=== PATIENT | female | born 2000 | race Caucasian/White ===

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

== ENCOUNTER 2020-04-08 15:18 | Emergency (ER) | payer OTHER, SELFPAY ==
[2020-04-08 15:29] VITALS: BP 123/57; PULSE 70; RESP 18; TEMP 37.2; O2SAT 98; BMI 32.8
[2020-04-08 16:26] LABS: Add Manual Diff / Slide Review NO; Basophils Absolute Auto 0 /uL (0-100); Basophils Percent Auto 0.4 % (0-2); Eosinophils Absolute Auto 200 /uL (0-450); Hematocrit 38.1 % (36-46); Hemoglobin 12.7 g/dL (12.0-16.0); Lymphocytes Absolute Auto 2600 /uL (1100-4500); Mean Corpuscular HGB Conc 33.4 % (30-36); Mean Corpuscular Hemoglobin 31.3 PG (26-34); Mean Corpuscular Volume 93.7 fL (80-100); Monocytes Absolute Auto 600 /uL (0-900); Monocytes Percent Auto 6.6 % (3-14); Neutrophils Absolute Auto 5300 /uL (1500-7000); Platelet Count 247 X10^3/uL (150-400); Red Blood Cell Count 4.07 X10^6/uL (4.0-5.2); Red Cell Distribution Width 13.7 % (11.6-14.8); White Blood Cell Count 8.6 X10^3/uL (4.5-11.0)
[2020-04-08 16:32] LABS: INR 1.1 (0.9-1.3); Prothrombin Time 12.4 SECONDS (10.1-12.7)
[2020-04-08 16:35] LABS: PTT Partial Thromboplastin Tim 32 SECONDS (26.4-36.2)
[2020-04-08 16:39] LABS: Alanine Aminotransferase 14 IU/L (<35); Albumin 4.5 g/dL (3.5-5.0); Albumin Globulin Ratio 1.6 (1.0-2.8); Alkaline Phosphatase 65 U/L (38-126); Amylase 105 U/L (30-110); Aspartate Aminotransferase 27 IU/L (14-36); BUN Creatinine Ratio 15.5 (6-22); Bilirubin Total 0.4 mg/dL (0.2-1.3); Blood Urea Nitrogen 9 mg/dL (7-17); Calcium 9.2 mg/dL (8.4-10.2); Carbon Dioxide 25 mmol/L (22-32); Chloride 105 mmol/L (98-107); Estimated Glomerular Filt Rate > 60.0 mL/min (>60); Globulin 2.9 g/dL (1.7-4.1); Glucose 81 mg/dL (70-100); HEMOLYSIS 19 (0-50); Lipase 42 U/L (23-300); Potassium 3.8 mmol/L (3.4-5.1); Sodium 138 mmol/L (137-145); Total Protein 7.4 g/dL (6.3-8.2)
--- NOTE | 2020-04-08 16:44 | ED_ITS ---
HPI - Abdominal Pain <NISHANT Richards - Last Filed: 04/08/20 19:22> General Chief Complaint: Abdominal Pain Stated Complaint: thinks appendicitis sent by [facility] Time Seen by Provider: 04/08/20 15:44 Source: patient and family Mode of arrival: Ambulatory Limitations: no limitations History of Present Illness HPI narrative: The patient is a 19-year-old female current smoker with history o f ovarian cyst who presents with a chief complaint of sudden severe left lower quadrant pain. This started yesterday, she has had no fevers no nausea or vomiting. She states that the pain goes all the way through to her back. She denies any dysuria urgency or frequency. She denies any possibility of as she has Mirena IUD. She states that the pain radiates to her back, she has had some diarrhea as well. Cough, chest pain or shortness of breath. She states that this feels much different on her last ovarian cyst. It did hurt for her to drive here in the car. Related Data Home Medications Medication Instructions Recorded Confirmed ibuprofen 1 dose PO PRN PRN 11/11/18 04/08/20 cetirizine 10 mg capsule 10 mg PO DAILY 04/08/20 04/08/20 Previous Rx's Medication Instructions Recorded Mirena 52 mg INTRAU X1 #1 ea 09/08/16 hydroxyzine HCl 25 mg tablet 25 mg PO QID PRN #60 tab 11/04/18 fluoxetine 40 mg capsule 40 mg PO DAILY #90 cap 05/22/19 hydrocodone-acetaminophen [[place]] 1 tab PO Q4-6H PRN #7 tab 04/08/20 ondansetron 4 mg PO Q6H PRN #14 tab 04/08/20 prednisone 40 mg PO DAILY 5 Days #10 tab 04/08/20 Allergies Allergy/AdvReac Type Severity Reaction Status Date / Time adhesive [ADHESIVE] Allergy Unknown Verified 04/08/20 14:49 morphine [MORPHINE] AdvReac Unknown Verified 04/08/20 14:49 Review of Systems <NISHANT Richards - Last Filed: 04/08/20 19:22> Review of Systems Narrative: GENERAL: Denies chills, fatigue, malaise, fever, sweats. HEENT: Denies sinus pain, ear pain, sore throat, difficulty swallowing, dizziness. RESPIRATORY: Denies dyspnea, cough, wheezing, hemoptysis, sputum. CARDIOVASCULAR: Denies chest pain, palpitations, orthopnea, edema, GASTROINTESTINAL: See HPI : Denies dysuria, frequency, incontinence, hematuria, urinary retention. MUSCULOSKELETAL: denies weakness, joint pain, or bony pain SKIN: Denies rash, skin lesions, or other NEUROLOGIC: Denies weakness, headache, numbness, change in speech, confusion, seizures, incoordination. PSYCHIATRIC: No concerning psychosocial issues. 12 point review of systems is negative except for those stated above Patient History <NISHANT Richards - Last Filed: 04/08/20 19:22> Medical History (Updated 04/08/20 @ 19:18 by NISHANT Richards) Attention deficit hyperactivity disorder (ADHD) (Chronic 05/12/14) Depression (Chronic) Social History Smoking Status: Current every day smoker alcohol intake: never substance use type: marijuana Smoking Status: Current every day smoker Exam <NISHANT Richards - Last Filed: 04/08/20 19:22> Narrative Exam Narrative: GENERAL: This is a well-nourished, well-developed patient, appears uncomfortable with mother at bedside HEAD: Atraumatic. Normocephalic. No temporal or scalp tenderness. EYES: Pupils equal round and reactive. Extraocular motions intact. No scleral icterus. No injection or drainage. ENT: Nose without bleeding, purulent drainage or septal hematoma. Throat without erythema, tonsillar hypertrophy or exudate. Uvula midline. Airway patent. NECK: Trachea midline. No JVD or lymphadenopathy. Supple, nontender, no meninge al signs. CARDIOVASCULAR: Regular rate and rhythm RESPIRATORY: Clear to auscultation. Breath sounds equal bilaterally. No wheezes, rales, or rhonchi. No cough. No increased respiratory effort. No accessory muscle use. GASTROINTESTINAL: Abdomen soft, tenderness in the left lower quadrant to palpat ion. Nondistended. No hepato-splenomegaly, or palpable masses. No guarding. Active bowel sounds all 4 quadrants EXTREMITIES: No clubbing, cyanosis, or edema. No joint tenderness, effusion, or edema noted. BACK: Nontender without deformity or crepitance. No flank tenderness. NEURO: AOx3. SKIN: No rash or erythema on visible skin Initial Vital Signs Initial Vital Signs: Vital Signs Temperature 99.0 F 04/08/20 15:29 Pulse Rate 70 04/08/20 15:29 Respiratory Rate 18 04/08/20 15:29 Blood Pressure 123/57 L 04/08/20 15:29 Pulse Oximetry 98 04/08/20 15:29 <Tadeo Aguirre DO - Last Filed: 04/09/20 11:06> Initial Vital Signs Initial Vital Signs: Vital Signs Temperature 99.0 F 04/08/20 15:29 Pulse Rate 70 04/08/20 15:29 Respiratory Rate 18 04/08/20 15:29 Blood Pressure 123/57 L 04/08/20 15:29 Pulse Oximetry 98 04/08/20 15:29 Scores <NISHANT Richards - Last Filed: 04/08/20 19:22> GCS Austen coma scale eye opening: Spontaneous Austen coma scale verbal response: Orientated Austen coma scale motor response: Obey commands Austen coma scale total score: 15 Course <NISHANT Richards - Last Filed: 04/08/20 19:22> Orders Ordered: Discontinued Medications Hydrocodone Bitart/Acetaminophen ([place] 5/325) 1 tab PO NOW ONE Stop: 04/08/20 18:17 Last Admin: 04/08/20 18:36 Dose: 1 tab Documented by: KATIE Sodium Chloride (Normal Saline 0.9%) 1,000 mls @ 1,000 mls/hr IV BOLUS ONE Stop: 04/08/20 16:57 Last Infusion: 04/08/20 19:54 Dose: 0 mls/hr Documented by: Admin: 04/08/20 16:57 Dose: 1,000 mls/hr Documented by: KATIE Methylprednisolone (Solu-Medrol 125 Mg Vial) 125 mg IV NOW ONE Stop: 04/08/20 18:17 Last Admin: 04/08/20 18:36 Dose: 125 mg Documented by: KATIE Morphine Sulfate (Morphine) 2 mg IV NOW ONE Stop: 04/08/20 15:59 Last Admin: 04/08/20 16:57 Dose: 2 mg Documented by: KATIE Vital Signs Vital signs: Vital Signs - 8 hr 04/08/20 15:29 Temperature 99.0 F Pulse Rate 70 Respiratory Rate 18 Blood Pressure 123/57 L Pulse Oximetry 98 <Tadeo Aguirre DO - Last Filed: 04/09/20 11:06> Orders Ordered: Discontinued Medications Hydrocodone Bitart/Acetaminophen ([place] 5/325) 1 tab PO NOW ONE Stop: 04/08/20 18:17 Last Admin: 04/08/20 18:36 Dose: 1 tab Documented by: KATIE Sodium Chloride (Normal Saline 0.9%) 1,000 mls @ 1,000 mls/hr IV BOLUS ONE Stop: 04/08/20 16:57 Last Infusion: 04/08/20 19:54 Dose: 0 mls/hr Documented by: Admin: 04/08/20 16:57 Dose: 1,000 mls/hr Documented by: KATIE Methylprednisolone (Solu-Medrol 125 Mg Vial) 125 mg IV NOW ONE Stop: 04/08/20 18:17 Last Admin: 04/08/20 18:36 Dose: 125 mg Documented by: KATIE Morphine Sulfate (Morphine) 2 mg IV NOW ONE Stop: 04/08/20 15:59 Last Admin: 04/08/20 16:57 Dose: 2 mg Documented by: KATIE Vital Signs Vital signs: Vital Signs - 8 hr 04/08/20 15:29 Temperature 99.0 F Pulse Rate 70 Respiratory Rate 18 Blood Pressure 123/57 L Pulse Oximetry 98 MDM - Abdominal Pain <NISHANT Richards - Last Filed: 04/08/20 19:22> Lab Data Result diagrams: 04/08/20 16:10 04/08/20 16:10 Labs: Lab Results 04/08/20 04/08/20 04/08/20 Range/Units 16:10 16:10 16:10 WBC 8.6 (4.5-11.0) X10^3/uL RBC 4.07 (4.0-5.2) X10^6/uL Hgb 12.7 (12.0-16.0) g/dL Hct 38.1 (36-46) % MCV 93.7 (80-100) fL MCH 31.3 (26-34) PG MCHC 33.4 (30-36) % RDW 13.7 (11.6-14.8) % Plt Count 247 (150-400) X10^3/uL Neut % (Auto) 61.0 (50-75) % Lymph % (Auto) 30.0 (25-40) % [place] % (Auto) 6.6 (3-14) % Eos % (Auto) 2.0 (2-4) % Baso % (Auto) 0.4 (0-2) % Neut # (Auto) 5300 (9052-5568) /uL Lymph # (Auto) 2600 (2588-3777) /uL [place] # (Auto) 600 (0-900) /uL Eos # (Auto) 200 (0-450) /uL Baso # (Auto) 0 (0-100) /uL PT 12.4 (10.1-12.7) SECONDS INR 1.1 (0.9-1.3) APTT 32 D (26.4-36.2) SECONDS Sodium 138 (137-145) mmol/L Potassium 3.8 (3.4-5.1) mmol/L Chloride 105 (98-107) mmol/L Carbon Dioxide 25 (22-32) mmol/L BUN 9 (7-17) mg/dL Creatinine 0.58 (0.52-1.04) mg/dL Estimated GFR > 60.0 (>60) mL/min BUN/Creatinine Ratio 15.5 (6-22) Glucose 81 (70-100) mg/dL Calcium 9.2 (8.4-10.2) mg/dL Total Bilirubin 0.4 (0.2-1.3) mg/dL AST 27 (14-36) IU/L ALT 14 (<35) IU/L Alkaline Phosphatase 65 (38-126) U/L Total Protein 7.4 (6.3-8.2) g/dL Albumin 4.5 (3.5-5.0) g/dL Globulin 2.9 (1.7-4.1) g/dL Albumin/Globulin Ratio 1.6 (1.0-2.8) Amylase (30-110) U/L Lipase 42 (23-300) U/L 04/08/20 Range/Units 16:10 WBC (4.5-11.0) X10^3/uL RBC (4.0-5.2) X10^6/uL Hgb (12.0-16.0) g/dL Hct (36-46) % MCV (80-100) fL MCH (26-34) PG MCHC (30-36) % RDW (11.6-14.8) % Plt Count (150-400) X10^3/uL Neut % (Auto) (50-75) % Lymph % (Auto) (25-40) % [place] % (Auto) (3-14) % Eos % (Auto) (2-4) % Baso % (Auto) (0-2) % Neut # (Auto) (9089-2511) /uL Lymph # (Auto) (0447-8696) /uL [place] # (Auto) (0-900) /uL Eos # (Auto) (0-450) /uL Baso # (Auto) (0-100) /uL PT (10.1-12.7) SECONDS INR (0.9-1.3) APTT (26.4-36.2) SECONDS Sodium (137-145) mmol/L Potassium (3.4-5.1) mmol/L Chloride (98-107) mmol/L Carbon Dioxide (22-32) mmol/L BUN (7-17) mg/dL Creatinine (0.52-1.04) mg/dL Estimated GFR (>60) mL/min BUN/Creatinine Ratio (6-22) Glucose (70-100) mg/dL Calcium (8.4-10.2) mg/dL Total Bilirubin (0.2-1.3) mg/dL AST (14-36) IU/L ALT (<35) IU/L Alkaline Phosphatase (38-126) U/L Total Protein (6.3-8.2) g/dL Albumin (3.5-5.0) g/dL Globulin (1.7-4.1) g/dL Albumin/Globulin Ratio (1.0-2.8) Amylase 105 (30-110) U/L Lipase (23-300) U/L Imaging Data CT scan - abdomen/pelvis: Radiologist's Impression: [facility] [address] [place] [id number] Scan Report Signed Patient: Davin,Linda MARTHA#: [id number] : 2000Acct:[id number] Age/Sex: 19 / FDate of Service: 04/08/20 Loc: ED Accession Number: [id number] Procedure: CT abdomen pelvis w con Ordering Provider: Sridevi Ventura PROCEDURE: CT ABDOMEN PELVIS W CON INDICATIONS: LLQ pain TECHNIQUE: After the administration of intravenous contrast, 5 mm thick sections acquired from the diaphragm to the symphysis. 5 mm coronal and sagittal reformats were acquired. For radiation dose reduction, the following was used: automated exposure control, adjustment of mA and/or kV according to patient size. COMPARISON: [facility], US, US PELVIC COMPLETE, 06/25/2019, 8:41. [facility], CT, ABDOMEN/PELVIS WITH CONTRAST, 10/03/2015, 0:12. FINDINGS: Image quality: Excellent. ABDOMEN: Lung bases: Lung bases are clear. Heart size is normal. Solid organs: Liver is normal in size and enhancement. Gallbladder is within normal limits. Biliary system is non dilated. Pancreas enhances normally. Spleen is normal in size and enhancement. Small splenule is noted inferior to the spleen. No adrenal nodules. Kidneys demonstrate normal size and enhancement, without hydronephrosis. Peritoneum and bowel: There is no evidence of bowel obstruction. Wall thickening and mild pericolonic fat stranding is noted involving splenic flexure and descending colon with narrowing of the lumen concerning for infectious or inflammatory colitis. No gross peritoneal free air. Small amount of free fluid is seen in lower pelvis. Nodes and vessels: No retroperitoneal or mesenteric adenopathy by size criteria. Aorta and inferior vena cava are normal in size. Miscellaneous: No ventral hernias. PELVIS: Genitourinary: Bladder wall thickness is normal. Miscellaneous: No inguinal hernias or adenopathy. Intrauterine device is noted within the central endometrial location and is within normal limits. No gross abnormality is seen in bilateral ovaries. Bones: No suspicious bony lesions. No vertebral body compression fractures. IMPRESSION: 1. Finding is concerning for infectious or inflammatory colitis involving splenic flexure and descending colon. No bowel obstruction. No peritoneal free air. A physiologic amount of free fluid seen in lower pelvis. 2. Intrauterine device in place. Dictated by: Jakob Carlton M.D. on 04/08/2020 at 17:38 Approved by: Jakob Carlton M.D. on 04/08/2020 at 17:41 MDM Narrative Medical decision making narrative: The patient is a 19-year-old female who presents with a chief complaint of left lower quadrant pain. She states that this is different than her history of ovarian cyst. Her lab work is grossly normal, no leukocytosis. Given the level of her pain I did get a CT abdomen pelvis with contrast. This shows concern for infectious or inflammatory coli tis. Given the fact that she is afebrile with no leukocytosis, we will pursue inflammatory colitis at this point time with steroids medicine and nausea medicine. I discussed at length the importance of following up with primary care provider in the next few days. I discussed at length return precautions the emergency department. I discussed that her ovaries appear to be well on the CT but we agreed to hold off on a pelvic exam today as she feels as though this pain is different wants to follow up with primary care provider. Patient and mother have no questions or concerns upon discharge and state understanding of return precautions as well as follow-up care. <Tadeo Aguirre, DO - Last Filed: 04/09/20 11:06> Lab Data Labs: Lab Results 04/08/20 04/08/20 04/08/20 Range/Units 16:10 16:10 16:10 WBC 8.6 (4.5-11.0) X10^3/uL RBC 4.07 (4.0-5.2) X10^6/uL Hgb 12.7 (12.0-16.0) g/dL Hct 38.1 (36-46) % MCV 93.7 (80-100) fL MCH 31.3 (26-34) PG MCHC 33.4 (30-36) % RDW 13.7 (11.6-14.8) % Plt Count 247 (150-400) X10^3/uL Neut % (Auto) 61.0 (50-75) % Lymph % (Auto) 30.0 (25-40) % [place] % (Auto) 6.6 (3-14) % Eos % (Auto) 2.0 (2-4) % Baso % (Auto) 0.4 (0-2) % Neut # (Auto) 5300 (0497-3928) /uL Lymph # (Auto) 2600 (0310-2935) /uL [place] # (Auto) 600 (0-900) /uL Eos # (Auto) 200 (0-450) /uL Baso # (Auto) 0 (0-100) /uL PT 12.4 (10.1-12.7) SECONDS INR 1.1 (0.9-1.3) APTT 32 D (26.4-36.2) SECONDS Sodium 138 (137-145) mmol/L Potassium 3.8 (3.4-5.1) mmol/L Chloride 105 (98-107) mmol/L Carbon Dioxide 25 (22-32) mmol/L BUN 9 (7-17) mg/dL Creatinine 0.58 (0.52-1.04) mg/dL Estimated GFR > 60.0 (>60) mL/min BUN/Creatinine Ratio 15.5 (6-22) Glucose 81 (70-100) mg/dL Calcium 9.2 (8.4-10.2) mg/dL Total Bilirubin 0.4 (0.2-1.3) mg/dL AST 27 (14-36) IU/L ALT 14 (<35) IU/L Alkaline Phosphatase 65 (38-126) U/L Total Protein 7.4 (6.3-8.2) g/dL Albumin 4.5 (3.5-5.0) g/dL Globulin 2.9 (1.7-4.1) g/dL Albumin/Globulin Ratio 1.6 (1.0-2.8) Amylase (30-110) U/L Lipase 42 (23-300) U/L 04/08/20 Range/Units 16:10 WBC (4.5-11.0) X10^3/uL RBC (4.0-5.2) X10^6/uL Hgb (12.0-16.0) g/dL Hct (36-46) % MCV (80-100) fL MCH (26-34) PG MCHC (30-36) % RDW (11.6-14.8) % Plt Count (150-400) X10^3/uL Neut % (Auto) (50-75) % Lymph % (Auto) (25-40) % [place] % (Auto) (3-14) % Eos % (Auto) (2-4) % Baso % (Auto) (0-2) % Neut # (Auto) (2455-2500) /uL Lymph # (Auto) (7653-4579) /uL [place] # (Auto) (0-900) /uL Eos # (Auto) (0-450) /uL Baso # (Auto) (0-100) /uL PT (10.1-12.7) SECONDS INR (0.9-1.3) APTT (26.4-36.2) SECONDS Sodium (137-145) mmol/L Potassium (3.4-5.1) mmol/L Chloride (98-107) mmol/L Carbon Dioxide (22-32) mmol/L BUN (7-17) mg/dL Creatinine (0.52-1.04) mg/dL Estimated GFR (>60) mL/min BUN/Creatinine Ratio (6-22) Glucose (70-100) mg/dL Calcium (8.4-10.2) mg/dL Total Bilirubin (0.2-1.3) mg/dL AST (14-36) IU/L ALT (<35) IU/L Alkaline Phosphatase (38-126) U/L Total Protein (6.3-8.2) g/dL Albumin (3.5-5.0) g/dL Globulin (1.7-4.1) g/dL Albumin/Globulin Ratio (1.0-2.8) Amylase 105 (30-110) U/L Lipase (23-300) U/L Discharge Plan Departure Patient Disposition: Home Clinical Impression: Colitis Discharge Date/Time: 04/08/20 19:54 Instructions: DI for Abdominal Pain-Adult, DI for Colitis Activity Restrictions/Additional Instructions: Thank you for trusting us with your care today As discussed, your CT is concerning for colitis. We have placed you on pain medicine, nausea medicine and steroids. Follow-up with primary care provider for re-evaluation in the next few days. I have given you a work note for few days off of work so you can recuperate. I also sent a prescription of nausea medicine and pain medicine to [facility]. Please start your steroids tomorrow as we gave you an IV dose today. I have given you a prescription of a narcotic for pain. Be aware that this can be constipating and sedating. I encouraged taking with a stool softener, p ushing fluids and fiber. Do not take and drive, operate heavy machinery, etc. Do not combine it with any other sedating substances such as alcohol. The combination of narcotics and alcohol and/or other sedatives can be lethal. Please come back to the emergency department for any acute concerns Prescriptions: New hydrocodone-acetaminophen [[place]] 5-325 mg tablet 1 tab PO Q4-6H PRN (Reason: pain) Qty: 7 RF: 0 ondansetron 4 mg tablet,disintegrating 4 mg PO Q6H PRN (Reason: nausea and vomiting) Qty: 14 RF: 0 prednisone 20 mg tablet 40 mg PO DAILY 5 Days Qty: 10 RF: 0 No Action Zyrtec 10 mg capsule 10 mg PO DAILY RF: 0 Mirena 1 EACH intrauterine device 52 mg INTRAU X1 Qty: 1 RF: 0 hydroxyzine HCl 25 mg tablet 25 mg PO QID PRN (Reason: anxiety) Qty: 60 RF: 2 fluoxetine 40 mg capsule 40 mg PO DAILY Qty: 90 RF: 1 ibuprofen 200 mg Tablet 1 dose PO PRN PRN (Reason: pain) RF: 0 Referrals: Selma Valverde MD [Primary Care Provider] - Stand Alone Forms: Work Release Note <Tadeo Aguirre DO - Last Filed: 04/09/20 11:06> [facility] Att[facility]: I was immediately available in the department for consultation. This documentation has been reviewed and I agree with assessment and plan. Supervised by Tadeo Aguirre DO
[2020-04-08] MEDS: MORPHINE 2 MG/ML INJ IV (16:57)
[2020-04-08] MEDS: SODIUM CHLORIDE 0.9% 1,000 ML 1000 ML IV (16:57)
[2020-04-08] MEDS: methylPREDNISolone 125 MG/2 ML VIAL IV (18:36)
[2020-04-08] MEDS: HYDROCODONE/ACET 5/325 TABLET 1 TAB PO (18:36)
[2020-04-08 19:54] VITALS: BP 116/67; PULSE 62; O2SAT 100
== END 2020-04-08 19:54 | disposition home or self-care (01) ==
PROVIDERS: Emergency Medicine; Emergency Provider Nurse Practitioner Family; PCP Family Medicine
DX: K52.9 Noninfective gastroenteritis and colitis, unspecified (principal); M54.9 Dorsalgia, unspecified; Z97.5 Presence of (intrauterine) contraceptive device
CPT/HCPCS: 74177; 80053; 82150; 83690; 85025; 85610; 85730; 93005; 93010; 96361; 96374; 96375; 99284; J2270; J2930; Q9967

== ENCOUNTER → 2020-04-20 08:56 | Outpatient (CLI) | payer OTHER, SELFPAY | PROVIDERS: PCP Family Medicine; Referring Provider Family Medicine; Visit Provider Family Medicine | DX: K52.9 Noninfective gastroenteritis and colitis, unspecified (principal) | CPT/HCPCS: 87045; 87177; 87899 ==

== ENCOUNTER → 2020-06-21 17:17 | Outpatient (CLI) | payer OTHER, SELFPAY ==
[2020-06-21 20:15] LABS: Urine N gonorrhoeae NOT DETECTED
[2020-06-21 20:32] LABS: Urine Chlamydia NOT DETECTED
== END ==
PROVIDERS: PCP Family Medicine; Visit Provider Obstetrics & Gynecology
DX: Z11.3 Encounter for screening for infections with a predominantly sexual mode of transmission (principal)
CPT/HCPCS: 87491; 87591

== ENCOUNTER → 2020-06-21 17:42 | Outpatient (CLI) | payer OTHER, SELFPAY ==
[2020-06-21 19:49] LABS: HIV 1 & 2 Ab/Ag 4th Gen Combo NEGATIVE (NEGATIVE)
[2020-06-22 04:44] LABS: Hepatitis B Core AB w/Reflex Negative (Negative)
[2020-06-22 07:35] LABS: RPR Screen Non Reactive (Non Reactive)
[2020-06-24 11:36] LABS: Hepatitis Be Antibody Negative (Negative)
== END ==
PROVIDERS: PCP Family Medicine; Referring Provider Obstetrics & Gynecology; Visit Provider Obstetrics & Gynecology
DX: Z20.2 Contact with and (suspected) exposure to infections with a predominantly sexual mode of transmission (principal); Z11.3 Encounter for screening for infections with a predominantly sexual mode of transmission
CPT/HCPCS: 36415; 86592; 86704; 86707; 87389; 87491; 87591

== ENCOUNTER → 2020-07-02 08:23 | Outpatient (CLI) | payer OTHER, SELFPAY ==
[2020-07-04 09:26] LABS: COVID19 Sendout Not Detected (Not Detect)
== END ==
PROVIDERS: PCP Family Medicine; Visit Provider Physician Assistant
DX: Z11.59 Encounter for screening for other viral diseases (principal)
CPT/HCPCS: 87635

== ENCOUNTER 2020-07-05 09:46 | Day surgery (SDC) | payer OTHER, SELFPAY ==
[2020-06-30 14:56] VITALS: BMI 32.2
[2020-07-05] VITALS (8 sets, daily range): BP systolic 108–120; BP diastolic 60–78; PULSE 70–93; RESP 10–16; TEMP 36.1–36.7; O2SAT 98–99; BMI 32.0
[2020-07-05] MEDS: LACTATED RINGERS 1,000 ML 100 ML IV (10:28)
--- NOTE | 2020-07-05 11:05 | SUR.OPER ---
Lithotomy on padded OR bed, head on pillow, arms secured on padded arm boards at <90 degrees abduction. Legs secured in padded yellow fins stirrups.
--- NOTE | 2020-07-05 11:17 | PM.HP.1 ---
History of Present Illness History of Present Illness Date Patient Seen: 07/05/20 Time Patient Seen: 11:17 Chief complaint: SD Narrative: Patient is a 20-year-old 0 with a malpositioned Mirena IUD in the lower uterine segment, a sebaceous cyst on the mons pubis, and increasing pain on the right side from a right ovarian cyst. She presents today for removal and reinsertion of IUD, laparoscopic removal of right ovarian cyst, and excision of sebaceous cyst of the mons pubis. Patient History Medical History (Updated 04/23/20 @ 00:00 by ) Attention deficit hyperactivity disorder (ADHD) (Chronic 05/12/14) Depression (Chronic) Family & Social History Social History: household members family Tobacco & Substance use: Tobacco type e-cigarettes,cannabis/marijuana Smoking Status Current every day smoker alcohol intake never alcohol intake frequency a few times a week Substance Use Type marijuana Meds Home Medications and Allergies Home Medications Medication Instructions Recorded Confirmed Type Mirena 52 mg INTRAU X1 #1 ea 09/08/16 06/30/20 Rx ibuprofen 1 dose PO PRN PRN 11/11/18 07/05/20 History cetirizine 10 mg capsule 10 mg PO DAILY PRN 04/08/20 07/05/20 History fluoxetine 40 mg capsule 40 mg PO DAILY #90 cap 06/28/20 07/05/20 Rx dicyclomine 10 mg PO QID PRN 07/05/20 07/05/20 History Allergies Allergy/AdvReac Type Severity Reaction Status Date / Time adhesive [ADHESIVE] Allergy Intermediate Rash Verified 07/05/20 10:05 morphine [MORPHINE] AdvReac Unknown doesn't Verified 07/05/20 10:05 like the feeling Exam Vital Signs (past 8 hours): - 07/05/20 10:16 Temperature 98.1 F Pulse Rate 74 Respiratory Rate 16 Blood Pressure 111/78 Pulse Oximetry 98 Oxygen Delivery Method Room Air Narrative Exam Narrative: HEENT: No thyromegaly, no anterior cervical or supraclavicular lymphadenopathy. Lungs:Clear to auscultation bilaterally, no wheezes. Cardiovascular: Regular rate and rhythm, no murmurs, rubs, or gallops. Abdomen: No scars. No hepatosplenomegaly. No masses palpable. External genitalia: 1.5 cm sebaceous cyst of the mons pubis Vagina: Normal Cervix: Normal Bimanual exam: 6 Week size uterus. Mobile. Right adnexal tenderness. Left adnexa without fullness or tenderness Rectal: No masses. Assessment & Plan Assessment & Plan narrative: Assessment: 20-year-old 0 with a right ovarian cyst that is symptomatic, sebaceous cyst of the mons pubis, and malpositioned Mirena IUD Plan: Removal of Mirena IUD and placement of Kyleena IUD Excision of sebaceous cyst in the mons pubis Excision of right ovarian cyst by laparoscopy The risks, benefits, and alternatives to the procedure were explained to the patient. The risks including bleeding, infection, injury to the bowel, bladder, or ureter, or uterine perforation. She understands these risks and agrees to proceed. A full par Q was held and consent form was signed. COVID-19 COVID-19 status: Negative Result date/Date tested (Pos, Neg/Pending): 07/02/20 Time Spent With Patient Time with patient: 15-24 minutes
--- NOTE | 2020-07-05 11:20 | PM.PREOP ---
Pre-operative Note COVID-19 COVID-19 status: Negative Result date/Date tested (Pos, Neg/Pending): 07/02/20 Interval Note History & Physical reviewed/Exam performed by Physician: Yes Changes to H&P: No H&P completed within 30 days and has changed as indicated here:: 07/05/20
[2020-07-05] MEDS: BUPIVACAINE 0.5% W/ EPI (PF) 30 ML VIAL INJ (12:23)
--- NOTE | 2020-07-05 13:23 | PM.GYNOP.1 ---
Operative Date/Time/Diagnoses Date of procedure: 07/05/20 Time of procedure: 13:23 Pre-op diagnosis: Malpositioned IUD Pelvic pain Right ovarian cyst by ultrasound Mons pubis sebaceous cyst Post-op diagnosis: same Procedure & Clinicians Procedure: Procedures Operation Date: 07/05/20 11:00 Actual Procedures Side Surgeon s Intrauterine Device Removal Reinsertion (Mirena), Ashley Nathan MD s removal of monspubis sebaceous cyst Ashley Nathan MD p Laparoscopy, Diagnostic, PHOTOVOLTAIC TECHNICIAN Ashley Nathan MD Indications: Malpositioned IUD Pelvic pain Sebaceous cyst in the mons pubis Right ovarian cyst Surgeon: Ashley Nathan Anesthesia Type: General (LMA) Operative Notes Findings: Six week size anteverted uterus Normal tubes and ovaries Normal appendix Normal liver and gallbladder No evidence of endometriosis or adhesions Closure Type: primary Estimated blood loss (mL): 5 Blood products transfused: none Procedure in detail: After informed consent was obtained, the patient was taken to the operating room where she was placed in the dorsal supine position. After adequate LMA general anesthesia was achieved, she was placed in the dorsal lithotomy position, and prepped and draped in the usual sterile fashion. A bivalve speculum was placed into the vagina. A single-tooth tenaculum was placed on the anterior lip of the cervix. A needle nose grasper was used to grasp the IUD strings and the Mirena was removed without difficulty. The cervical os was sequentially dilated until the Zumi uterine manipulator could pass easily into the endometrial cavity. The single-tooth tenaculum was removed from the anterior lip of the cervix. The bivalve speculum was removed from the vagina. Attention was then turned to the abdomen where 6 cc of 0.5% Marcaine with epinephrine were injected in the umbilical fold. A 5 mm incision was made. The Veress needle was placed into the peritoneal cavity, and its placement confirmed by aspiration and drop test. The abdominal cavity was insufflated with 3.4 L of CO2. The Veress needle was removed and a 5 mm trocar was placed without difficulty. A 2nd incision was made lateral to the umbilicus on the left side approximately 4 cm after 6 cc of 0.5% Marcaine with epinephrine were injected. A 5 mm trocar was placed under direct visualization. A probe was placed through the lateral trocar and the pelvis was examined with the findings noted above. The instruments were removed from the abdomen. The CO2 was allowed to escape. The trocars were removed. The incisions were closed with 4 0 Biosyn in a subcuticular fashion. Steri-Strips, 2 x 2, and op site were placed. Attention was then turned to the vagina where a bivalve speculum was placed into the vagina. The single-tooth tenaculum was placed on the anterior lip of the cervix. The uterus sounded to 6 cm. The Kyleena IUD passed easily into the endometrial cavity and was released. The strings were cut to 1.5 cm. The single-tooth tenaculum was removed from the anterior lip of the cervix. The bivalve speculum was removed from the vagina. Attention was then turned to the mons pubis. A small incision was made over the sebaceous cyst. The cyst was excised. 4-0 Biosyn was used to close the incision. Steri-Strips and a Band-Aid were placed over the incision. Sponge, lap, and instrument counts were correct x2. The patient tolerated the procedure well, and was taken to PACU in stable condition. Complications: none Post-operative Condition: stable Disposition: PACU Plan for aftercare: Home after recovery
--- NOTE | 2020-07-05 13:25 | SUR.PHASEII ---
Pt ready for discharge, assisted to dress by mom, r lower tegaderm/gauze dressing with small amount of drainage. Pt left unit in stable condition.
== END 2020-07-05 13:25 | disposition home or self-care (01) ==
PROVIDERS: Admitting Provider Anesthesiology; PCP Family Medicine; Referring Provider Obstetrics & Gynecology; Visit Provider Obstetrics & Gynecology
PROC: (CPT 49320; principal; 2020-07-05 11:00)
PROC: (CPT 49320; 2020-07-05 11:00)
PROC: (CPT 49320; 2020-07-05 11:00)
DX: R10.2 Pelvic and perineal pain (principal); T83.32XA Displacement of intrauterine contraceptive device, initial encounter; Z30.433 Encounter for removal and reinsertion of intrauterine contraceptive device; R93.89 Abnormal findings on diagnostic imaging of other specified body structures; N94.89 Other specified conditions associated with female genital organs and menstrual cycle
CPT/HCPCS: 49320; 11402; 58300; 58301; J1100; J1885; J2405; J2704; J3010; J7296

== ENCOUNTER → 2021-08-09 11:51 | Outpatient (ROUT) | payer BC, OTHER, SELFPAY ==
[2021-08-09 13:38] LABS: Urine N gonorrhoeae NOT DETECTED
[2021-08-09 13:45] LABS: Urine Chlamydia NOT DETECTED
== END ==
PROVIDERS: PCP Family Medicine; Visit Provider Family Medicine
DX: Z72.51 High risk heterosexual behavior (principal)
CPT/HCPCS: 87491; 87591

== ENCOUNTER → 2022-08-09 15:54 | Outpatient (CLI) | payer OTHER, SELFPAY ==
--- NOTE | 2022-08-09 15:56 | DI.US.S_ITS ---
PROCEDURE: US PELVIC COMPLETE INDICATIONS: Check IUD Placement TECHNIQUE: Real-time scanning was performed of the pelvic organs, with image documentation. Additional endovaginal scanning was necessary due to incomplete visualization of the adnexal and endometrial structures by transabdominal scanning. COMPARISON: [facility], US, US PELVIC COMPLETE, 01/16/2022, 13:22. FINDINGS: Uterus: Uterus is anteverted and normal in size at 6.1 x 3.2 x 5.3 cm. The myometrium is homogeneous. The endometrium measures 3.2 mm combined thickness. Intrauterine device in expected position. Ovaries: The right ovary measures 2.1 x 1.9 x 1.3 cm, with a calculated ovarian volume of 2.7 cc. The left ovary measures 1.3 x 2.1 x 1.1 cm, with a calculated ovarian volume of 1.5 cc. The ovaries have a normal sonographic appearance. Less than 12 follicles can be seen in each ovary. Simple right paraovarian cyst measuring 1.4 cm. . Other: No pathologic free abdominal or pelvic fluid. IMPRESSION: 1. Intrauterine device in expected position. 2. Simple right paraovarian cyst. We strive to produce accurate, complete, and clear reports of imaging services. To assist us in improving patient care, this report was composed using standard report templates and voice recognition software. Therefore, it may contain abnormal punctuation, insertions and/or omissions. Occasional wrong-word or sound-alike substitutions may occur. Though we review the report and make efforts to correct it, we do recommend that the report be read carefully in proper context to recognize any text inaccuracies. Dictated by: Rick MONIQUE Interpreted: Librado Schmitz MD on 08/09/2022 at 16:45 Transcribed by: MELINA on 08/10/2022 at 16:27 Approved by: Felicia Pritchard M.D. on 08/10/2022 at 17:33
== END ==
PROVIDERS: PCP Family Medicine; Referring Provider Obstetrics & Gynecology; Visit Provider Obstetrics & Gynecology
DX: N92.0 Excessive and frequent menstruation with regular cycle (principal); N83.291 Other ovarian cyst, right side; Z97.5 Presence of (intrauterine) contraceptive device
CPT/HCPCS: 76830; 76856

== ENCOUNTER → 2022-10-05 15:21 | Outpatient (CLI) | payer OTHER, MEDICAID, SELFPAY ==
[2022-10-10 13:58] LABS: Chlamydia trachomatis Negative (Negative); Mycoplasma genitalium Negative (Negative); Neisseria gonorrhoeae Negative (Negative)
== END ==
PROVIDERS: PCP Family Medicine; Visit Provider Obstetrics & Gynecology
DX: N90.89 Other specified noninflammatory disorders of vulva and perineum (principal); Z11.3 Encounter for screening for infections with a predominantly sexual mode of transmission
CPT/HCPCS: 87255; 87491; 87563; 87591

== ENCOUNTER → 2022-11-21 12:01 | Outpatient (CLI) | payer OTHER, MEDICAID, SELFPAY ==
[2022-11-24 02:22] LABS: QuantiFERON Mitogen Value >10.00 IU/mL (.); QuantiFERON Nil Value 0.02 IU/mL (.); QuantiFERON TB Gold Plus Negative (Negative); QuantiFERON TB1 Ag Value 0.03 IU/mL (.); QuantiFERON TB2 Ag Value 0.01 IU/mL (.)
== END ==
PROVIDERS: PCP Family Medicine; Referring Provider Family Medicine; Visit Provider Family Medicine
DX: T78.49XA Other allergy, initial encounter (principal)
CPT/HCPCS: 36415; 86480

== ENCOUNTER 2023-04-05 08:17 | Day surgery (SDC) | payer OTHER, MEDICAID, SELFPAY ==
[2023-03-27 10:03] VITALS: BMI 36.2
[2023-04-05 08:27] VITALS: BP 117/69; PULSE 70; RESP 20; TEMP 36.1; O2SAT 99; BMI 36.2
[2023-04-05] MEDS: LACTATED RINGERS 1,000 ML 100 ML IV (08:37)
--- NOTE | 2023-04-05 09:08 | P.HPOB_ITS ---
History of Present Illness History of Present Illness Narrative: Brandee Jin is a 22 year old female 0 with recurrent ovarian cysts since IUD in place Desires IUD removal. Unable to tolerate removal in the office. [facility] Medical History (Updated 11/08/21 @ 13:23 by Selma Valverde MD) Attention deficit hyperactivity disorder (ADHD) (05/12/14) Depression Surgical History (Updated 12/11/22 @ 15:23 by Silvana Porter RN) Hx of laparoscopy (07/05/20) Social History household members: other Smoking Status: Current every day smoker alcohol intake: current substance use type: marijuana Meds Home Medications and Allergies Home Medications Medication Instructions Recorded Confirmed Type cetirizine 10 mg capsule (Zyrtec) 10 mg PO DAILY PRN Allergy Symptoms 04/08/20 04/05/23 History ibuprofen 200 mg tablet 400 mg PO PRN PRN pain 05/11/21 04/05/23 History dicyclomine 10 mg capsule 10 mg PO TID PRN abdominal 11/07/21 04/05/23 Rx cramping #30 caps levonorgestrel 21 mcg/24 hours (8 1 device intrauterine CONT 01/16/22 04/05/23 History yrs) 52 mg intrauterine device (Mirena) hydroxyzine HCl 25 mg tablet 25 mg PO QID PRN anxiety #60 tabs 06/14/22 04/05/23 Rx sertraline 25 mg tablet 25 mg PO DAILY #30 tabs 02/02/23 04/05/23 Rx clobetasol 0.05 % topical foam 1 applic topical DAILY alopecia 02/19/23 04/05/23 Rx #100 grams Allergies Allergy/AdvReac Type Severity Reaction Status Date / Time adhesive [ADHESIVE] Allergy Intermediate Rash Verified 04/05/23 08:16 morphine [MORPHINE] AdvReac Unknown doesn't Verified 04/05/23 08:16 like the feeling fluoxetine AdvReac Mild Anxiety Uncoded 04/05/23 08:16 Exam Vital Signs (past 8 hours): - 04/05/23 08:27 Temperature 97 F L Pulse Rate 70 Respiratory Rate 20 Blood Pressure 117/69 Pulse Oximetry 99 Oxygen Delivery Method Room Air Oxygen Delivery Method Room Air Narrative Exam Narrative: HEENT: [No thyromegaly, no anterior cervical or supraclavicular lymphadenopathy.] Lungs:[Clear to auscultation bilaterally, no wheezes.] Cardiovascular: [Regular rate and rhythm, no murmurs, rubs, or gallops]. Abdomen: [Well-healed laparoscopy scars. No hepatosplenomegaly. No masses palpable.] External genitalia: Deferred Vagina: Deferred Cervix: Deferred Bimanual exam: Deferred Extremities: No edema Assessment & Plan Assessment & Plan narrative: Assessment: 22-year-old 0 with recurrent ovarian cysts since IUD in place Desires IUD removal Plan: IUD removal under anesthesia The risks, benefits, and alternatives to the procedure were explained to the patient. The risks including bleeding and infection. She understands these risks and agrees to proceed. A full par Q was held and consent form was signed. Ortho Evra as new form of control Time Spent With Patient Time with patient: less than 30 minutes
--- NOTE | 2023-04-05 09:11 | PM.PREOP ---
Pre-operative Note COVID-19 Criteria for continued procedure: Non-surgical alternatives not available or appropriate per current SOC Interval Note History & Physical reviewed/Exam performed by Physician: Yes Changes to H&P: No H&P completed within 30 days and has changed as indicated here:: 04/05/23
--- NOTE | 2023-04-05 09:34 | SUR.OPER ---
Lithotomy on padded OR bed, head on pillow, arms secured on padded arm boards at <90 degrees abduction. Legs secured in padded yellow fins stirrups.
[2023-04-05 09:46] VITALS: BP 110/78; PULSE 66; RESP 9; O2SAT 99
[2023-04-05 09:47] VITALS: BP 100/70; PULSE 63; RESP 16; TEMP 36.6; O2SAT 98
[2023-04-05 09:50] VITALS: BP 122/79; PULSE 61; RESP 10; O2SAT 100
[2023-04-05 09:52] VITALS: BP 109/74; PULSE 67; RESP 15; TEMP 36.2; O2SAT 98
--- NOTE | 2023-04-05 10:00 | SUR.PHASEI ---
Jeri pad CDI
--- NOTE | 2023-04-05 10:05 | PM.GYNOP.1 ---
Operative Date/Time/Diagnoses Date of procedure: 04/05/23 Time of procedure: 10:05 Pre-op diagnosis: Kyleena IUD in place Recurrent ovarian cysts Patient desires IUD be removed Unable to tolerate removal in the office Post-op diagnosis: same Procedure & Clinicians Procedure: Procedures Operation Date: 04/05/23 09:45 Actual Procedure Side Surgeon p Intrauterine Device Removal Ashley Nathan MD Indications: Kyleena IUD in place Recurrent ovarian cysts Desires removal of IUD Can not tolerate IUD removal in the office Surgeon: Ashley Nathan Anesthesia Type: Sedation Operative Notes Findings: IUD strings not visible Closure Type: not applicable Specimen(s): none Estimated blood loss (mL): 0 Blood products transfused: none Procedure in detail: After informed consent was obtained, the patient was taken to the operating room where she was placed in the dorsal supine position. After IV sedation, the patient was placed in the dorsal lithotomy position, and prepped in the usual fashion. A bivalve speculum was placed into the vagina. The IUD strings were not visible outside the cervical os. The polyp forceps were placed into the endocervical canal in the IUD strings grasped without difficulty. The bivalve speculum was removed from the vagina. Sponge, lap, and instrument counts were correct x2. The patient tolerated the procedure well, and was taken to PACU in stable condition. Complications: none Post-operative Condition: stable Disposition: PACU Plan for aftercare: Home after recovery
== END 2023-04-05 10:12 | disposition home or self-care (01) ==
PROVIDERS: PCP Family Medicine; Referring Provider Obstetrics & Gynecology; Visit Provider Obstetrics & Gynecology
PROC: (CPT 58301; principal; 2023-04-05 09:45)
DX: N83.209 Unspecified ovarian cyst, unspecified side (principal); R10.2 Pelvic and perineal pain; Z30.432 Encounter for removal of intrauterine contraceptive device; F90.9 Attention-deficit hyperactivity disorder, unspecified type; F17.200 Nicotine dependence, unspecified, uncomplicated
CPT/HCPCS: 58301; J1100; J1885; J2405; J2704; J3010

== ENCOUNTER → 2023-07-04 17:59 | Outpatient (CLI) | payer OTHER, MEDICAID, SELFPAY | PROVIDERS: PCP Family Medicine; Visit Provider Nurse Practitioner Family | DX: R30.0 Dysuria (principal) | CPT/HCPCS: 81002; 81025; 87086 ==

== ENCOUNTER → 2023-07-26 17:45 | Outpatient (CLI) | payer OTHER, MEDICAID, SELFPAY ==
[2023-07-26 19:59] LABS: Urine N gonorrhoeae NOT DETECTED
[2023-07-26 20:02] LABS: Urine Chlamydia NOT DETECTED
== END ==
PROVIDERS: PCP Family Medicine; Visit Provider Nurse Practitioner Family
DX: Z11.3 Encounter for screening for infections with a predominantly sexual mode of transmission (principal)
CPT/HCPCS: 87491; 87591

== ENCOUNTER → 2023-09-06 07:37 | Outpatient (CLI) | payer OTHER, MEDICAID, SELFPAY ==
[2023-09-06 08:22] LABS: Influenza A - CEPHEID Flu A NEGATIVE (NEGATIVE); Influenza B - CEPHEID Flu B POSITIVE (NEGATIVE); Respiratory Syncytial Virus Negative (Negative)
[2023-09-06 08:44] LABS: COVID-19 CEPHEID 4-PLEX PCR Negative (Negative)
== END ==
PROVIDERS: PCP Family Medicine; Visit Provider Nurse Practitioner Family
DX: R05.1 Acute cough (principal); R52 Pain, unspecified; R09.81 Nasal congestion
CPT/HCPCS: 0241U

== ENCOUNTER → 2023-11-13 10:20 | Outpatient (CLI) | payer OTHER, SELFPAY ==
--- NOTE | 2023-11-13 10:21 | DI.RAD.S_ITS ---
PROCEDURE: XR CHEST 2V INDICATIONS: SOB TECHNIQUE: 2 views of the chest were acquired. COMPARISON: [facility], CR, XR CHEST 1V, 11/11/2018, 10:45. FINDINGS: Surgical changes and devices: None. Lungs and pleura: Lungs are clear. No pleural effusions or pneumothorax. Mediastinum: Mediastinal contours are normal. Heart size is normal. Bones and chest wall: No suspicious bony abnormalities. Soft tissues appear unremarkable. IMPRESSION: No acute cardiopulmonary abnormality process. Dictated by: Barber Mederos M.D. on 11/13/2023 at 11:43 Approved by: Barber Mederos M.D. on 11/13/2023 at 11:44
== END ==
PROVIDERS: PCP Family Medicine; Referring Provider Family Medicine; Visit Provider Family Medicine
DX: R06.02 Shortness of breath (principal)
CPT/HCPCS: 71046

== ENCOUNTER → 2024-02-11 14:34 | Outpatient (CLI) | payer OTHER, SELFPAY ==
--- NOTE | 2024-02-11 14:35 | DI.RAD.S_ITS ---
PROCEDURE: XR WRIST RT MIN 3V INDICATIONS: right wrist pain TECHNIQUE: 4 views of the wrist were acquired. COMPARISON: [facility], , WRIST MINIMUM 3 VIEWS LEFT, 06/21/2012, 9:53. FINDINGS: Bones: No acute fracture or dislocation. Joint spaces are well maintained. Soft tissues: No suspicious soft tissue calcifications. IMPRESSION: Normal right wrist radiograph . Dictated by: Francheska De Jesus M.D. on 02/11/2024 at 15:43 Approved by: Francheska De Jesus M.D. on 02/11/2024 at 15:45
== END ==
PROVIDERS: PCP Family Medicine; Referring Provider Nurse Practitioner Family; Visit Provider Nurse Practitioner Family
DX: M25.531 Pain in right wrist (principal)
CPT/HCPCS: 73110

== ENCOUNTER → 2024-04-22 16:04 | Outpatient (CLI) | payer OTHER, SELFPAY ==
[2024-04-22 16:56] LABS: Add Manual Diff / Slide Review NO; Basophils Absolute Auto 100 /uL (0-100); Basophils Percent Auto 0.6 % (0-2); Eosinophils Absolute Auto 100 /uL (0-450); Hematocrit 37.5 % (36-46); Hemoglobin 12.8 g/dL (12.0-16.0); Lymphocytes Absolute Auto 4000 /uL (1100-4500); Lymphocytes Percent Auto 38.6 % (25-40); Mean Corpuscular Hemoglobin 31.1 PG (26-34); Mean Corpuscular Volume 91.3 fL (80-100); Monocytes Absolute Auto 500 /uL (0-900); Neutrophils Absolute Auto 5600 /uL (1500-7000); Neutrophils Percent Auto 54.8 % (50-75); Platelet Count 323 X10^3/uL (150-400); Red Cell Distribution Width 13.9 % (11.6-14.8); White Blood Cell Count 10.2 X10^3/uL (4.5-11.0)
[2024-04-22 18:15] LABS: Hemoglobin A1C% w Est Avg Glu 5.3 % (4.0-6.0)
[2024-04-24 15:36] LABS: Insulin Level Total 38.1 uIU/mL (2.6-24.9)
[2024-05-01 09:36] LABS: Percent Free Testosterone 2.23 % (0.50-2.80); Testosterone Free 0.56 ng/dL (0.10-0.85); Testosterone Total 24.9 ng/dL (10.0-55.0)
== END ==
PROVIDERS: PCP Family Medicine; Referring Provider Family Medicine; Visit Provider Family Medicine
DX: E28.2 Polycystic ovarian syndrome (principal)
CPT/HCPCS: 36415; 83036; 83525; 84402; 84403; 85025

== ENCOUNTER → 2024-07-13 10:22 | Outpatient (CLI) | payer OTHER, SELFPAY ==
[2024-07-13 12:11] LABS: Urine N gonorrhoeae NOT DETECTED
[2024-07-13 12:44] LABS: Urine Chlamydia NOT DETECTED
== END ==
PROVIDERS: PCP Family Medicine; Visit Provider Registered Nurse
DX: N92.0 Excessive and frequent menstruation with regular cycle (principal)
CPT/HCPCS: 87210; 87491; 87591

== ENCOUNTER → 2024-07-21 09:34 | Outpatient (CLI) | payer OTHER, SELFPAY | PROVIDERS: PCP Family Medicine; Visit Provider Physician Assistant | DX: J02.9 Acute pharyngitis, unspecified (principal) | CPT/HCPCS: 87070 ==

== ENCOUNTER → 2024-07-23 11:16 | Outpatient (CLI) | payer OTHER, SELFPAY | PROVIDERS: PCP Family Medicine; Referring Provider Family Medicine; Visit Provider Family Medicine | DX: Z20.2 Contact with and (suspected) exposure to infections with a predominantly sexual mode of transmission (principal) | CPT/HCPCS: 36415; 86695; 86696 ==

== ENCOUNTER → 2025-03-20 08:35 | Outpatient (CLI) | payer OTHER, SELFPAY ==
[2025-03-20 11:39] LABS: Urine N gonorrhoeae NOT DETECTED
[2025-03-20 11:40] LABS: Urine Chlamydia NOT DETECTED
[2025-03-20 23:36] LABS: HSV 1 IGG Non Reactive (Non Reactive); HSV 2 IGG Non Reactive (Non Reactive)
== END ==
PROVIDERS: PCP Family Medicine; Referring Provider Family Medicine; Visit Provider Family Medicine
DX: Z20.2 Contact with and (suspected) exposure to infections with a predominantly sexual mode of transmission (principal)
CPT/HCPCS: 86592; 86695; 86696; 87491; 87591

== ENCOUNTER → 2025-06-11 14:42 | Outpatient (CLI) | payer OTHER, SELFPAY ==
--- NOTE | 2025-06-11 14:43 | DI.RAD.S_ITS ---
PROCEDURE: XR FOOT RT MIN 3V INDICATIONS: Right foot pain TECHNIQUE: 3 views of the foot were acquired. COMPARISON: None. FINDINGS: Bones: No fractures or dislocations. No suspicious bony lesions. Changes of internal fixation the medial and lateral malleoli. Soft tissues: No tibiotalar joint effusion. Achilles tendon appears normal. IMPRESSION: No acute bony abnormality. Dictated by: Rasta Romo M.D. on 06/11/2025 at 15:48 Approved by: Rasta Romo M.D. on 06/11/2025 at 15:49
--- NOTE | 2025-06-11 14:43 | DI.RAD.S_ITS ---
PROCEDURE: XR ANKLE RT MIN 3V INDICATIONS: Right ankle pain TECHNIQUE: 3 views of the ankle were acquired. COMPARISON: None. FINDINGS: See impression IMPRESSION: Changes of bimalleolar internal fixation without acute hardware complication. The ankle mortise is maintained. No acute osseous abnormality. The soft tissues are unremarkable. Dictated by: Rasta Romo M.D. on 06/11/2025 at 15:45 Approved by: Rasta Romo M.D. on 06/11/2025 at 15:48
== END ==
PROVIDERS: PCP Family Medicine; Referring Provider Nurse Practitioner Family; Visit Provider Nurse Practitioner Family
DX: S96.911A Strain of unspecified muscle and tendon at ankle and foot level, right foot, initial encounter (principal); X58.XXXA Exposure to other specified factors, initial encounter
CPT/HCPCS: 73610; 73630

== ENCOUNTER → 2025-07-10 15:58 | Outpatient (CLI) | payer OTHER, SELFPAY ==
[2025-07-10 17:37] LABS: Urine N gonorrhoeae NOT DETECTED
[2025-07-10 17:43] LABS: Urine Chlamydia NOT DETECTED
== END ==
PROVIDERS: PCP Family Medicine; Visit Provider Nurse Practitioner Family
DX: Z11.3 Encounter for screening for infections with a predominantly sexual mode of transmission (principal); R30.0 Dysuria; N89.8 Other specified noninflammatory disorders of vagina
CPT/HCPCS: 87086; 87210; 87491; 87591